=== PATIENT | female | born 1975 | race Hispanic/Latino ===

== ENCOUNTER 2024-12-02 11:53 | Emergency (ER) | payer SELFPAY ==
[~2024-12-02] VITALS: Ht 160 cm; Wt 102.1 kg
[~2024-12-02 11:53] MED LIST: LOSARTAN POTASS25 MG PO; TIROSINT150 MCG PO
[2024-12-02] MEDS: IBUPROFEN 400 MG TAB PO ONE (12:51)
[2024-12-02 13:18] VITALS: PULSE 81; RESP 16; TEMP 97.9; O2SAT 99
== END 2024-12-02 15:51 | disposition home or self-care (01) ==
LOC: ER 12:11
DX: S49.92XA Unspecified injury of left shoulder and upper arm, initial encounter (principal); V43.52XA Car driver injured in collision with other type car in traffic accident, initial encounter; Y93.89 Activity, other specified; Y92.410 Unspecified street and highway as the place of occurrence of the external cause; I10 Essential (primary) hypertension; E03.9 Hypothyroidism, unspecified; M54.9 Dorsalgia, unspecified
CPT/HCPCS: 71046; 99283